=== PATIENT | female | born 1950 | race Caucasian/White ===

== ENCOUNTER 2024-03-01 08:52 | Outpatient (REF) | payer MEDICARE, OTHER, SELFPAY ==
--- NOTE | ~2024-03-01 | CT_ITS ---
EXAMINATION: CT SINUS WITHOUT CONTRAST CLINICAL INFORMATION: 73-year-old with sinonasal polyps and deviated septum. COMPARISON: 02/15/2017 CT TECHNIQUE: CT imaging of the paranasal sinuses was performed with 2D multiplanar reformatted reconstructions. This CT examination was performed using dose optimization techniques as appropriate, variously including the following: *Automated exposure control *Adjustment of mA and/or kV according to patient size (this includes techniques or standardized protocols for targeted exams where dose is matched to indication/reason for exam; i.e. extremities or head) *Use of iterative reconstruction technique DLP: 90 mGy-cm FINDINGS: NASAL CAVITY: There is sinusoidal nasal septal deviation. The olfactory recesses are clear. There is paradoxical curvature of the middle turbinates bilaterally. There is [id number] nodularity of the left inferior turbinate and mild thickening of the right inferior turbinate similar to the previous exam. No discrete nasal cavity masses are identified. The middle meati are patent and clear bilaterally. There is mild nodularity of the nasal septal mucosa similar to previous study. The visualized nasopharyngeal soft tissues appear symmetric and normal in attenuation. MAXILLARY SINUSES: Minor mucosal thickening along the floor of the left maxillary sinus on current study. Otherwise, the maxillary sinuses are clear and well-pneumatized with bilaterally patent OMCs. The alveolar process of the maxilla is intact. ETHMOID SINUSES: There is minor mucosal thickening along the ethmoid septa of the anterior ethmoid complex bilaterally. There is opacification of a single left posterior ethmoid air cell. No interval change in these findings. FRONTAL SINUSES: The frontal sinuses are predominantly clear and moderately well-pneumatized with patent drainage. SPHENOID SINUS: Well-pneumatized and mostly clear with only minor mucosal thickening along the anterior pimentel, left more than right with a patent right OMC. Left OMC is obscured by mucosal thickening. The carotid canals are posterolateral. A very thin plate of bone separates the right ICA from the lumen of the right sphenoid sinus. ADDITIONAL FINDINGS: Limited assessment of the included intracranial soft tissue structures demonstrates no gross acute process. Visualized orbital soft tissue structures appear grossly unremarkable. Visualized extracranial soft tissue structures are unremarkable. CT/CT sinus wo IV con IMPRESSION: 1. Sinusoidal nasal septal deviation with nodularity of the inferior turbinates and nasal septal mucosa similar to the previous study. 2. Minor mucosal thickening in the left maxillary sinus and bilateral ethmoid complex with obscuration of the left OMC by mucosal thickening, as detailed above, similar in the ethmoid complex. 3. Minor mucosal thickening in the sphenoid sinus, unchanged. 4. No discrete nasal cavity masses.
== END 2024-03-01 08:53 | disposition home or self-care (01) ==
LOC: HO.CT 08:52
PROVIDERS: PCP Physician Assistant; Visit Provider Otolaryngology
DX: J33.0 Polyp of nasal cavity (principal); J34.2 Deviated nasal septum
CPT/HCPCS: 70486